=== PATIENT | female | born 1955 | race Two or more races ===

== ENCOUNTER → 2017-12-26 | Emergency (ER) | payer OTHER ==
[~2017-12-26] VITALS: Ht 152.4 cm; Wt 59.0 kg
[~2017-12-26] MED LIST: BACTRIM DS TAB1 EACH PO; DOLOGESIC CAPLE1 TAB PO; METRONIDAZOLE500 MG PO; OMEPRAZOLE20 M1 PO; PREDNISONE10 MG PO; TOPROL XL100 M1; TRAM1TAB98 PO; VASOTEC10 MG
== END | disposition home or self-care (01) ==
LOC: ER 12:59
DX: K57.92 Diverticulitis of intestine, part unspecified, without perforation or abscess without bleeding (principal)

== ENCOUNTER 2018-08-23 08:55 | Outpatient (CLI) | payer OTHER | END 2018-08-23 09:09 | disposition home or self-care (01) | LOC: RAD 501 08:55 | DX: M54.5 Low back pain (principal) ==

== ENCOUNTER 2019-05-11 11:46 | Outpatient (CLI) | payer OTHER | END 2019-05-11 12:00 | disposition home or self-care (01) | LOC: MAMO-SONO 11:46 | DX: M81.0 Age-related osteoporosis without current pathological fracture (principal); Z12.31 Encounter for screening mammogram for malignant neoplasm of breast; Z87.898 Personal history of other specified conditions ==

== ENCOUNTER 2020-05-09 13:47 | Outpatient (CLI) | payer OTHER | END 2020-05-09 13:51 | disposition home or self-care (01) | LOC: NUCLEAR 13:47 | DX: M81.0 Age-related osteoporosis without current pathological fracture (principal) ==

== ENCOUNTER 2022-01-30 11:12 | Outpatient (CLI) | payer OTHER | END 2022-01-30 11:23 | disposition home or self-care (01) | LOC: SONOGRAMA 11:12 | DX: N13.30 Unspecified hydronephrosis (principal) ==

== ENCOUNTER 2022-02-12 11:12 | Outpatient (CLI) | payer OTHER | END 2022-02-12 11:32 | disposition home or self-care (01) | LOC: MAMO-SONO 11:12 | PROVIDERS: ATTEND General Practice | DX: D48.61 Neoplasm of uncertain behavior of right breast (principal); D48.62 Neoplasm of uncertain behavior of left breast ==

== ENCOUNTER 2022-03-05 11:53 | Outpatient (CLI) | payer OTHER | END 2022-03-05 11:55 | disposition home or self-care (01) | LOC: RAD 11:53 | PROVIDERS: ATTEND General Practice | DX: J44.9 Chronic obstructive pulmonary disease, unspecified (principal); I70.0 Atherosclerosis of aorta; I51.7 Cardiomegaly ==

== ENCOUNTER 2022-05-09 16:13 | Emergency (ER) | payer OTHER ==
[~2022-05-09] VITALS: Ht 152.4 cm; Wt 61.2 kg
== END 2022-05-09 20:53 | disposition home or self-care (01) ==
LOC: ER 16:13
DX: S00.83XA Contusion of other part of head, initial encounter (principal); S80.02XA Contusion of left knee, initial encounter; S30.0XXA Contusion of lower back and pelvis, initial encounter; X58.XXXA Exposure to other specified factors, initial encounter; Y93.89 Activity, other specified; Y92.59 Other trade areas as the place of occurrence of the external cause; Y99.9 Unspecified external cause status; I10 Essential (primary) hypertension; Z88.8 Allergy status to other drugs, medicaments and biological substances

== ENCOUNTER 2023-06-29 20:23 | Emergency (ER) | payer OTHER ==
[~2023-06-29] VITALS: Ht 154.9 cm; Wt 90.7 kg
[2023-06-29] MEDS ORDERED: PANTOPRAZOLE SO40 MG PO (20:42)
== END 2023-06-29 22:11 | disposition home or self-care (01) ==
LOC: ER 20:23
DX: S90.02XA Contusion of left ankle, initial encounter (principal); W10.8XXA Fall (on) (from) other stairs and steps, initial encounter; Y93.89 Activity, other specified; Y92.89 Other specified places as the place of occurrence of the external cause; Y99.9 Unspecified external cause status; Z88.6 Allergy status to analgesic agent; Z88.8 Allergy status to other drugs, medicaments and biological substances; I10 Essential (primary) hypertension

== ENCOUNTER 2024-06-03 20:22 | Emergency (ER) | payer OTHER ==
[~2024-06-03] VITALS: Ht 152.4 cm; Wt 68.0 kg
[~2024-06-03 20:22] MED LIST changes: +PANTOPRAZOLE SO40 MG PO
[2024-06-03] MEDS ORDERED: COLACE100 MG PO (20:45)
[2024-06-03] MEDS ORDERED: CODEINE-GUAIFE120 ML PO (20:45)
[2024-06-03] MEDS ORDERED: [UNRECOGNIZED DRUG - OTHER] (20:46)
[2024-06-03] MEDS ORDERED: PERCOCET 10-321 EACH (20:49)
[2024-06-03] MEDS ORDERED: ORPHENADRINE CITRATE 30 MG/ML AMPUL IM ONE (21:00)
[2024-06-03] MEDS ORDERED: 0.9 % SODIUM CHLORIDE 500 ML IV ONE (21:15)
[2024-06-03] MEDS ORDERED: KETOROLAC TROMETHAMINE 60 MG VIAL IM ONE (21:16)
[2024-06-03] MEDS ORDERED: ORPHENADRINE CITRATE 30 MG/ML AMPUL ONE (21:38)
== END 2024-06-03 23:19 | disposition home or self-care (01) ==
LOC: ER 20:23
DX: E86.0 Dehydration (principal); I10 Essential (primary) hypertension

== ENCOUNTER 2024-06-04 07:22 | Emergency (ER) | payer OTHER ==
[~2024-06-04] VITALS: Ht 152.4 cm; Wt 67.1 kg
[~2024-06-04 07:22] MED LIST changes: +CODEINE-GUAIFE120 ML PO; +COLACE100 MG PO; +PERCOCET 10-321 EACH; +[UNRECOGNIZED DRUG - OTHER]
[2024-06-04] MEDS ORDERED: 0.9 % SODIUM CHLORIDE 1,000 ML IV ONE (08:30)
[2024-06-04] MEDS ORDERED: METHYLPREDNISOLONE SOD SUCC 40 MG VIAL ONE (08:39)
[2024-06-04] MEDS ORDERED: METHYLPREDNISOLONE SOD SUCC 40 MG VIAL IM SCH (09:00)
[2024-06-04 10:33] LABS: INR 1.04; PARTIAL THROMBOPLASTIN TIME 27.7 SECONDS (22.0-34.0); PROTHROMBIN TIME 10.9 SECONDS (9.0-11.5)
[2024-06-04 10:40] LABS: ALBUMIN 3.7 gm/dL (3.4-5.0); BILIRUBIN TOTAL 0.42 mg/dL (0.3-1.2); CALCIUM 9.5 mg/dL (8.5-10.1); CREATININE SERUM 0.67 mg/dL (0.55-1.02); GFR 87.01; GLOBULINA 4.1 G/DL (2.4-3.5); POTASSIUM 3.67 mEq/L (3.5-5.1); TOTAL PROTEIN 7.8 gm/dL (6.4-8.2)
[2024-06-04 11:08] LABS: URINE APPEARANCE Clear; URINE BILIRRUBIN Negative (NEGATIVE); URINE BLOOD Negative; URINE COLOR Yellow; URINE GLUCOSE Negative (NEGATIVE); URINE LEUKOCYTE Negative; URINE NITRATE Negative; URINE PROTEIN Negative (NEGATIVE); URINE UROBILINOGEN 0.2 E.U./dl
[2024-06-04 11:12] LABS: URINE BACTERIA 17.6 uL (0.0-1933); URINE EPITHELIAL CELLS 4.6 uL (0.0-38.8); URINE RBC 11.1 uL (0.0-20.8); URINE WBC 5.5 uL (0.0-23.2)
[2024-06-04 12:17] LABS: ERYTHROCYTE SEDIMENTATION RATE 89 mm/hr
[2024-06-04 12:20] LABS: HEMATOCRIT 37.2 % (36.0-45.00); HEMOGLOBIN 12.1 g/dL (12.0-15.00); MEAN CELL VOLUME 84.4 fL (80.00-100.00); MEAN CORPUSCULAR HEMOGLOBIN 27.5 pg (27.00-32.0); MEAN CORPUSCULAR HGB CONC 32.5 g/dl (32.0-36.0); PLATELET COUNT 413 K/uL (150-450); RED CELL DISTRIBUTION WIDTH 14.5 % (11.5-14.5)
== END 2024-06-04 14:17 | disposition home or self-care (01) ==
LOC: ER 07:23
PROVIDERS: General Practice
DX: M62.838 Other muscle spasm (principal); Z20.822 Contact with and (suspected) exposure to COVID-19; I10 Essential (primary) hypertension; Z88.0 Allergy status to penicillin; Z88.1 Allergy status to other antibiotic agents

== ENCOUNTER → 2024-06-12 | Emergency (ER) | payer OTHER ==
[~2024-06-12] VITALS: Ht 154.9 cm; Wt 81.6 kg
[~2024-06-12] MED LIST changes: +ACETAMINOPHEN 500 MG GEL..CAP PO ONE
== END | disposition left against medical advice (07) ==
LOC: ER 03:25
DX: Z53.21 Procedure and treatment not carried out due to patient leaving prior to being seen by health care provider (principal)

== ENCOUNTER 2025-03-31 17:43 | Emergency (ER) | payer OTHER ==
[~2025-03-31] VITALS: Ht 152.4 cm; Wt 69.4 kg
[~2025-03-31 17:43] MED LIST changes: -ACETAMINOPHEN 500 MG GEL..CAP PO ONE
[2025-03-31] MEDS ORDERED: ATORVASTATIN CA10 MG (18:27)
[2025-03-31] MEDS ORDERED: ACEBUTOLOL HCL (18:28)
[2025-03-31] MEDS ORDERED: LIDOCAINE HCL 1% 10ML VIAL PERCUT ONE (19:00)
[2025-03-31] MEDS ORDERED: CEFTRIAXONE SODIUM 1,000 MG VIAL IM ONE (19:00)
[2025-03-31] MEDS ORDERED: TETANUS & DIPHTHERIA TOX,ADULT 0.5 ML VIAL IM ONE (19:00)
[2025-03-31] MEDS ORDERED: CEFUROXIME500 MG PO (19:52)
[2025-03-31] MEDS ORDERED: PEPCID AC20 MG PO (19:52)
[2025-03-31] MEDS ORDERED: NORFLEX100MG PO ×2 (19:52→19:56)
== END 2025-03-31 21:09 | disposition home or self-care (01) ==
LOC: ER 18:04
DX: S91.121A Laceration with foreign body of right great toe without damage to nail, initial encounter (principal); W22.8XXA Striking against or struck by other objects, initial encounter; Y93.89 Activity, other specified; Y92.89 Other specified places as the place of occurrence of the external cause; Z88.6 Allergy status to analgesic agent; Z88.1 Allergy status to other antibiotic agents; I10 Essential (primary) hypertension; S92.911A Unspecified fracture of right toe(s), initial encounter for closed fracture
CPT/HCPCS: 12002; 73660; 90471; 90714; 96372; 99283; J0696; J1670